=== PATIENT | female | born 1985 | race Caucasian/White ===

== ENCOUNTER 2016-11-22 15:57 | Emergency (ER) | payer MEDICARE, OTHER ==
[~2016-11-22 15:57] MED LIST: ACCUNE1 INH; ACETSUP650 PR; ATIVAN2I IM; BENEPROTEIN PEG; BISR PR; CELEXA20 PEG; CIP5 PO; COLACEUDL PEG; COREG25 PEG; COREG6 PEG; COUMADIN4 MG PEG; DURA25 TOP; I10 PEG; I10 PO; INDOCIN25 MG/5 ML PEG; JEVITY 1.5 PEG; KEPPRAUDL PEG; KEPPRAUDL PO; LIOR10 PEG; LORTABLIQ PEG; MERREM500 MG IV; MIRALAXPKT PEG; MOMUD PO; MORPHINE S20 MG/5 ML PEG; MULTIVIT/MIN PEG; MVIUDL PEG; PCET PEG; PRILO PEG; PRIN20 PEG; REG PEG; REG5 PEG; T PEG; VITC500 PEG; ZOFRAN2ML IV; [UNRECOGNIZED DRUG - OTHER] IM
[2016-11-22 18:12] LABS: ASCORBIC ACID (UR NOT ORDER) 40 (NEG); BILIRUBIN, URINE NEGATIVE (NEG); KETONE, URINE NEGATIVE (NEG); LEUKOCYTE ESTERASE(NOT OR LARGE (NEG); NITRITE (URINE) POS (NEG); WBC (NOT ORDERED) (RFLEX) 39 (0-5)
[2016-11-22 18:37] LABS: BASOPHILS 0.3 %; BASOPHILS ABSOLUTE 0.02 10/3/uL (0.0-0.16); EOSINOPHILS 2.3 %; EOSINOPHILS ABSOLUTE 0.18 10/3/uL (0.0-0.53); ER CBC TAT 0 Hrs 03 Mins; HEMATOCRIT 41.3 % (36.0-48.0); IMMATURE GRANULOCYTES 0.3 %; IMMATURE GRANULOCYTES ABSOLUTE 0.02 10/3/uL (0.0-0.11); LYMPHOCYTES 24.3 %; LYMPHOCYTES ABSOLUTE 1.89 10/3/uL (0.67-4.30); MEAN CORPUS HGB CONC 36.3 g/dL (32.0-36.0); MEAN CORPUSCULAR HEMOGLOB 33.7 pg (26.0-34.0); MEAN CORPUSCULAR VOLUME 92.8 fL (80-100); MEAN PLATELET VOLUME 12.7 fL (9.2-13.0); MONOCYTES 7.2 %; MONOCYTES ABSOLUTE 0.56 10/3/uL (0.21-1.20); NEUTROPHILS 65.6 %; NEUTROPHILS ABSOLUTE 5.11 10/3/uL (2.02-8.40); PLATELET COUNT 167 10/3/uL (150-400); RBC DISTRIBUTION WIDTH 14.1 % (12.0-16.0); RED CELL COUNT 4.45 10/6/uL (4.0-5.6); WHITE BLOOD CELLS 7.8 10/3/uL (4.5-10.5)
[2016-11-22 18:38] LABS: MANUAL DIFF NO %
[2016-11-22 18:53] LABS: A/G RATIO 1.1 (0.7-1.9); ALBUMIN 3.5 G/DL (3.5-5.0); ALKALINE PHOSPHATASE 76 U/L (45-117); BUN (BLOOD UREA NITROGEN) 7 MG/DL (6-23); CALCIUM, SERUM 8.2 MG/DL (8.5-10.4); CHLORIDE, SERUM 103 MMOL/L (96-112); CO2 (CARBON DIOXIDE) 28 MMOL/L (24-34); CREATININE 0.52 MG/DL (0.55-1.02); GFR AFRICAN AMERICAN 150 ML/MIN (>=60); GFR NON AFRICAN AMERICAN 129 ML/MIN (>=60); GLOBULIN 3.2 G/DL (2.5-4.1); GLUCOSE, SERUM 98 MG/DL (60-99); POTASSIUM, SERUM 3.9 MMOL/L (3.5-5.3); SGOT(AST) 16 U/L (5-40); SGPT(ALT) 53 U/L (5-65); SODIUM, SERUM 139 MMOL/L (135-148); TOTAL BILIRUBIN 0.9 MG/DL (0-1.2); TOTAL PROTEIN 6.7 G/DL (6.0-8.5)
[2017-02-20] MEDS ORDERED: MIRALAX POWDER1 PKT PEG (08:54)
[2017-02-20] MEDS ORDERED: ULTRAM50 PEG (08:54)
[2017-02-20] MEDS ORDERED: KEPPRAUDL PEG (08:54)
[2017-02-20] MEDS ORDERED: DEPO PROVERA IM (08:55)
[2017-02-20] MEDS ORDERED: [UNRECOGNIZED DRUG - OTHER] IM (08:55)
[2017-02-20] MEDS ORDERED: MYTAB GAS80 MG PO (08:56)
[2017-02-20] MEDS ORDERED: CEROVITE PEG (08:56)
[2017-02-20] MEDS ORDERED: COREG6 PEG (08:56)
[2017-02-20] MEDS ORDERED: ZANTAC 150 PO (08:57)
[2017-02-20] MEDS ORDERED: ESLICARBAZEPINE PEG (08:57)
[2017-02-20] MEDS ORDERED: ZANAFLEX 4 MG TA4 MG PEG (08:58)
[2017-02-20] MEDS ORDERED: HYTONE 0.5% CRM30 GM TOP (08:58)
[2017-02-20] MEDS ORDERED: DSS PEG (08:59)
[2017-02-20] MEDS ORDERED: KCL40UDL PEG (08:59)
[2017-02-20] MEDS ORDERED: DIASTAT 10 MG PR (09:01)
[2017-02-20] MEDS ORDERED: ZOFRAN ODT4 MG PEG (09:02)
== END 2016-11-22 22:00 | disposition home or self-care (01) ==
LOC: ER 15:57
PROVIDERS: Nurse Practitioner Family
DX: N39.0 Urinary tract infection, site not specified (principal); Z43.1 Encounter for attention to gastrostomy; Z79.899 Other long term (current) drug therapy
CPT/HCPCS: 49465; 74176; 80053; 81001; 83690; 84703; 85025; 87077; 87086; 87186; 99285; A9270-GY; J1953